=== PATIENT | female | born 1955 | race Caucasian/White ===

== ENCOUNTER → 2019-04-27 | Outpatient (CLI) | payer OTHER ==
--- NOTE | 2019-04-27 14:34 | PCVCIMAG ---
APPROVED REPORT Study performed: 04/27/2019 11:50:02 Exam: Stress Echocardiogram Indication: Abnormal calcium score Patient Location: Echo lab Stress Nurse: Johana Bowers RN Status: routine Ht: 5 ft 2 in HR: 85 bpm BP: 112/74 mmHg Rhythm: NSR Medical History Exercise History: Physically active Procedure The patient underwent an Exercise Stress Test using the Kei Protocol. Blood pressure, heart rate, and EKG were monitored. An Echocardiogram was performed by watch repair technician in four stages in quad fashion. At peak stress, four selected images were obtained and placed side by side with resting images for comparison. Stress Test Details Stress Test: Exercise stress testing was performed using a Kei protocol. HR Resting HR: 85 bpmMax Heart Rate (APMHR): 156 bpm Max HR Achieved: 160 bpmTarget HR (85% APMHR): 132 bpm % of APMHR: 102 Recovery HR: 95 bpm HR response to stress: Normal HR response to stress BP Resting BP: 112/74 mmHg Max BP: 172/84 mmHg Recovery BP: 128/64 mmHg BP response to stress: Normal blood pressure response to stress. ECG Resting ECG: Sinus Rhythm Stress ECG: Sinus Rhythm Recovery ECG: Sinus Rhythm Clinical Reason for Termination: Maximal effort Exercise duration: 13 min 47 sec Highest Stage Achieved: Stage 5: 5.0 mph at 18% grade. Exercise capacity: 17.20 METs Overall Exercise Capacity for Age: Good Pre-Stress Echo The resting Echocardiogram showed normal left ventricular contractility with an estimated Ejection Fraction of about 55-60%. Normal wall motion in all segments on baseline images. Post-Stress Echo The stress Echocardiogram showed normal left ventricular contractility with an estimated Ejection Fraction of about 60-65%. Normal augmentation of wall motion in all segments on post stress images. Clinical No clinical or ECG evidence for ischemia. Conclusion Clinical Response: Non-ischemic Exercise Capacity: Superior Stress ECG Response: Non-ischemic Stress Echo Images: Non-ischemic The left ventricle is normal in size and wall thickness in both the rest and stress images. No significant valvular abnormalities. Other Information Study Quality: Good <Conclusion> The left ventricle is normal in size and wall thickness in both the rest and stress images. No significant valvular abnormalities.
== END | disposition home or self-care (01) ==
LOC: PCVCIMAG 11:21
PROVIDERS: ATTEND Internal Medicine Cardiovascular Disease
DX: R93.1 Abnormal findings on diagnostic imaging of heart and coronary circulation (principal)
CPT/HCPCS: 93325; 93351